=== PATIENT | female | born 1950 | race Asian ===

== ENCOUNTER 2023-08-10 04:03 | Day surgery (SDC) | payer BC ==
[2023-08-02 15:19] VITALS: BMI 28.7
[2023-08-10] MEDS ORDERED: BENZOIN/ALOE VERA/STORAX/TOLU 58 ML BOTTLE ONE (09:15)
[2023-08-10] MEDS ORDERED: MIDAZOLAM HCL 2 MG/2 ML SINGLE DOSE VIAL ONE (10:23)
[2023-08-10] MEDS ORDERED: PROPOFOL 20 ML ONE (10:23)
[2023-08-10] MEDS ORDERED: LIDOCAINE 1%/EPI 1:100000 (20 ML MULTI DOSE VIAL) ONE (10:53)
[2023-08-10] MEDS: LIDOCAINE 1%/EPI 1:100000 (20 ML MULTI DOSE VIAL) IJ ONE ×4 (11:32→11:37)
[2023-08-10] MEDS: ceFAZolin SODIUM 1 GM VIAL IVPB ONE (11:32)
[2023-08-10] MEDS ORDERED: ceFAZolin SODIUM 1 GM VIAL ONE (11:34)
[2023-08-10] MEDS ORDERED: DEXAMETHASONE SOD PHOSPHATE 4 MG/1 ML VIAL ONE (11:34)
[2023-08-10] MEDS ORDERED: KETOROLAC TROMETHAMINE 30 MG/1 ML VIAL ONE (11:34)
[2023-08-10] MEDS ORDERED: ONDANSETRON 4 MG/2 ML VIAL ONE (11:34)
[2023-08-10] MEDS ORDERED: ONDANSETRON 4 MG/2 ML VIAL IVPUSH PRN (12:16)
[2023-08-10] MEDS ORDERED: LACTATED RINGERS SOLUTION 1,000 ML IV SCH (12:30)
[2023-08-10 14:02] VITALS: RESP 20; TEMP 97.8
[2023-08-10] MEDS ORDERED: PHENYLEPHRINE HCL 10 MG/1 ML SINGLE DOSE VIAL ONE (14:24)
[2023-08-10 17:16] VITALS: BP 160/83; PULSE 60
== END 2023-08-10 14:44 | disposition home or self-care (01) ==
LOC: JASU-SURG 04:03
PROVIDERS: ATTEND Surgery
PROC: 0JB00ZZ Excision of Scalp Subcutaneous Tissue and Fascia, Open Approach (ICD-10-PCS; principal; 2023-08-10 11:00)
DX: L72.11 Pilar cyst (principal)
CPT/HCPCS: 88304-TC; 94760